=== PATIENT | female | born 1955 | race African-American/Black ===

== ENCOUNTER 2017-11-26 13:03 | Emergency (ER) | payer MEDICAID ==
[~2017-11-26] VITALS: Ht 157.5 cm; Wt 66.5 kg
[~2017-11-26 13:03] MED LIST: ALBU1.25 NEB; ALBU8.5H5 INH; ESTR1TAB15 PO; FLUT1DIS3 INH; MONT10TA6 PO
[2017-11-26 13:09] VITALS: BP 134/84
[2017-11-26] MEDS ORDERED: ALBUTEROL/IPRATROPIUM 2.5MG/0.5MG, 3 ML NPPB ONE (13:30)
[2017-11-26] MEDS ORDERED: ALBUTEROL/IPRATROPIUM 2.5MG/0.5MG, 3 ML ONE (13:43)
== END 2017-11-26 14:37 | disposition home or self-care (01) ==
LOC: ED 14:35
DX: J45.31 Mild persistent asthma with (acute) exacerbation (principal); F17.210 Nicotine dependence, cigarettes, uncomplicated; Z59.0 Homelessness
CPT/HCPCS: 71046; 93005; 94640; 99284; J7620

== ENCOUNTER 2019-02-08 11:18 | Emergency (ER) | payer MEDICARE, MEDICAID ==
[~2019-02-08] VITALS: Ht 165.1 cm; Wt 65.0 kg
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
[2019-02-08] MEDS ORDERED: NEOSPORIN OINT. PKT 1 PACKET ONE (11:34)
--- NOTE | 2019-02-08 12:36 | NUR ---
PT OUT OF ROOM FOR IMAGING.
--- NOTE | 2019-02-08 12:58 | NUR ---
PT ON [facility] URINATING. PT HAS DIFFICULTY "GETTING IT STARTED". I ATTEMPTED TO BREATHALIZE PT BUT PT WAS UNCOOPERATIVE AND I DID NOT GET A RESULT. VSS. NAD.
[2019-02-08 13:35] VITALS: BP 129/89
--- NOTE | 2019-02-08 13:38 | NUR ---
Patient/Caregiver given discharge instructions and they have confirmed that they understand the instructions. Patient ambulatory with steady gait. Pt has been given extra wound care supplies. Pt requesting taxi voucher. Taxi voucher will be given.
== END 2019-02-08 13:56 | disposition home or self-care (01) ==
LOC: ED 13:46
DX: S00.83XA Contusion of other part of head, initial encounter (principal); S00.81XA Abrasion of other part of head, initial encounter; J45.909 Unspecified asthma, uncomplicated; W19.XXXA Unspecified fall, initial encounter; Y93.89 Activity, other specified; Y92.488 Other paved roadways as the place of occurrence of the external cause; Y99.8 Other external cause status
CPT/HCPCS: 70450; 70486; 72125; 99284